=== PATIENT | male | born 1940 | race African-American/Black ===

== ENCOUNTER 2019-11-30 14:56 | Observation (INO) | payer MEDICARE, OTHER ==
--- NOTE | 2019-11-30 14:58 | ER Document Report ---
ED General - General Stated Complaint: POSSIBLE STROKE Time Seen by Provider: 11/30/19 14:58 Mode of Arrival: Medic Information source: Patient, Emergency Med Personnel Cannot obtain history due to: Dementia TRAVEL OUTSIDE OF THE [place] IN LAST 30 DAYS: No - HPI Onset: Other - unknown onset. SNF staff noticed the changes at 2pm but unclear time of onset Onset/Duration: Sudden Quality of pain: No pain Severity: Mild Associated symptoms: Weakness - left sided, Other - left sided facial droop Exacerbated by: Denies Relieved by: Denies Similar symptoms previously: No Recently seen / treated by doctor: Yes - patient was recently admitted at the [facility] for cellulitis Notes: 79 year old male with a history of Dementia, Obesity, DM, HTN and recent admission for cellulitis (patient is currently in a rehab facility) sent to the ER from his rehab facility due to a concern of left side weakness and facial droop. The patient apprently had a signficiant cellulitis requiring admission for IV antibiotic 2 weeks ago and he ended up going to a rehab facility afte rhis admission. The patient has no complaints here in the ER but his and apparently staff at his facility feel like has a left sided facial droop today. The facial droop was noticed around 2pm but no one knows for sure the exact time of onset of the facial droop. The patient was also noted to have some left sided weakness by the long-term staff but the patient denies this time here in the ER. - Related Data Allergies/Adverse Reactions: No Known Allergies Allergy (Verified 11/30/19 18:25) Past Medical History - General Information source: Patient, Emergency Med Personnel Cannot obtain history due to: Dementia - Social History Smoking Status: Former Smoker Frequency of alcohol use: None Drug Abuse: None Lives with: Other - patient is currently in a rehab facility but he usually lives with his Family History: Reviewed & Not Pertinent Patient has suicidal ideation: No Patient has homicidal ideation: No - Past Medical History Cardiac Medical History: Reports: Hx Hypertension Neurological Medical History: Reports: Other - Dementia Endocrine Medical History: Reports: Hx Diabetes Mellitus Type 2 Renal/ Medical History: Reports: Other - Chronic Kidney Disease Skin Medical History: Reports Hx Cellulitis Review of Systems - Review of Systems Constitutional: No symptoms reported EENT: No symptoms reported Cardiovascular: No symptoms reported Respiratory: No symptoms reported Gastrointestinal: No symptoms reported Genitourinary: No symptoms reported Male Genitourinary: No symptoms reported Musculoskeletal: No symptoms reported Skin: No symptoms reported Hematologic/Lymphatic: No symptoms reported Neurological/Psychological: Other - mild left sided facial droop -: Yes All other systems reviewed and negative Physical Exam - Vital signs Vitals: Pulse Resp BP Pulse Ox 80 15 142/58 H 100 11/30/19 14:59 11/30/19 14:59 11/30/19 14:59 11/30/19 14:59 - Notes Notes: GENERAL: Obese, Well-appearing, well-nourished and in no acute distress. HEAD: Atraumatic, normocephalic. EYES: Pupils equal round and reactive to light, extraocular movements intact, sclera anicteric, conjunctiva are normal. ENT: TMs normal, nares patent, oropharynx clear without exudates. Moist mucous membranes. NECK: Normal range of motion, supple without lymphadenopathy or JVD. LUNGS: Breath sounds clear to auscultation bilaterally and equal. No wheezes rales or rhonchi. HEART: Regular rate and rhythm without murmurs, rubs or gallops. ABDOMEN: Soft, nontender, normoactive bowel sounds. No guarding, no rebound. No masses appreciated. EXTREMITIES: Normal range of motion, no pitting or edema. No clubbing or cyanosis. NEUROLOGICAL: Cranial nerves II through XII grossly intact except for very mild left sided facial droop. Normal speech. Equal strength throughout in all joints/extremities but patient is generally weak. NIH stroke scale of 1 for very mild left sided facial droop although patient is able to smile normal on the same side. PSYCH: Normal mood, normal affect. SKIN: Warm, Dry, normal turgor, no rashes or lesions noted. Course - Re-evaluation Re-evalutation: 11/30/19 18:37 The patient was sent to the ER from his rehab facility due to concern of a left sided facial droop and left sided weakness. The time of onset was unknown so the patient is not a TPA candidate. The patient himself thinks nothing is wrong with him but his family thinks he has a mild left sided facial droop. The patient's work up in the including a head CT was unremarkable. Patient admitted for a TIA work up. - Vital Signs Vital signs: Temp Pulse Resp BP Pulse Ox 84 24 H 146/67 H 100 11/30/19 18:00 11/30/19 18:25 11/30/19 18:25 11/30/19 18:25 - Laboratory Result Diagrams: 11/30/19 14:44 11/30/19 14:44 Laboratory results interpreted by me: 11/30/19 11/30/19 11/30/19 14:44 14:44 14:44 Hgb 13.2 L RDW 16.0 H APTT 36.7 H Carbon Dioxide 31 H Creatinine 1.30 H Est GFR (MDRD) Non-Af 53 L Glucose 137 H Discharge - Discharge Clinical Impression: TIA (transient ischemic attack) Condition: Stable Disposition: ADMITTED OBSERVATION Admitting Provider: Joshua (Hospitalist) Unit Admitted: RUPESH
[2019-11-30 15:13] LABS: PARTIAL THROMBOPLASTIN TIME 36.7 SEC (23.5-35.8)
[2019-11-30 15:19] LABS: ABSOLUTE BASOPHILS # (AUTO) 0.1 10^3/uL (0.0-0.2); ABSOLUTE EOSINOPHILS # (AUTO) 0.5 10^3/uL (0.0-0.6); ABSOLUTE LYMPHOCYTES (AUTO) 2.1 10^3/uL (0.5-4.7); ABSOLUTE MONOCYTES (AUTO) 0.9 10^3/uL (0.1-1.4); ABSOLUTE NEUT (AUTO) 6.6 10^3/uL (1.7-8.2); BASOPHILS % (AUTO) 0.5 % (0-2); EOSINOPHILS % (AUTO) 4.6 % (0-6); HEMATOCRIT 39.4 % (37.9-51.0); HEMOGLOBIN 13.2 g/dL (13.5-17.0); INTERNATIONAL RATION (INR) 1.13; LYMPHOCYTES % (AUTO) 21.1 % (13-45); MEAN CORPUSCULAR HEMOGLOBIN 30.3 pg (27.0-33.4); MEAN CORPUSCULAR HGB CONC 33.5 g/dL (32.0-36.0); MEAN CORPUSCULAR VOLUME 90 fl (80-97); PLATELET COUNT 328 10^3/uL (150-450); PROTHROMBIN TIME 14.6 SEC (11.4-15.4); RED BLOOD COUNT 4.36 10^6/uL (4.35-5.55); SEGMENTED NEUTROPHILS % (AUTO) 64.8 % (42-78); TOTAL CELLS COUNTED % (AUTO) 100 %; WHITE BLOOD COUNT 10.2 10^3/uL (4.0-10.5)
--- NOTE | 2019-11-30 15:26 | RADIOLOGY REPORT (SQ) ---
EXAM DESCRIPTION: CHEST SINGLE VIEW COMPLETED DATE/TIME: 11/30/2019 3:11 pm REASON FOR STUDY: eval for left sided weakness COMPARISON: None. EXAM PARAMETERS: NUMBER OF VIEWS: One view. TECHNIQUE: Single frontal radiographic view of the chest acquired. RADIATION DOSE: NA LIMITATIONS: None. FINDINGS: LUNGS AND PLEURA: No opacities, masses or pneumothorax. No pleural effusion. MEDIASTINUM AND HILAR STRUCTURES: No masses. Contour normal. HEART AND VASCULAR STRUCTURES: Heart normal in size. Normal vasculature. BONES: No acute findings. HARDWARE: None in the chest. OTHER: No other significant finding. IMPRESSION: NO ACUTE RADIOGRAPHIC FINDING IN THE CHEST. TECHNICAL DOCUMENTATION: JOB ID: [id number] 2010 [employer]- All Rights Reserved Reading location - IP/workstation name: [email or web address]
--- NOTE | 2019-11-30 15:26 | RADIOLOGY REPORT (SQ) ---
EXAM DESCRIPTION: CT HEAD WITHOUT COMPLETED DATE/TIME: 11/30/2019 3:06 pm REASON FOR STUDY: eval for left sided weakness COMPARISON: None. TECHNIQUE: Axial images acquired through the brain without intravenous contrast. Images reviewed wi th bone, brain and subdural windows. Additional sagittal and coronal reconstructions were generated. Images stored on PACS. All CT scanners at this facility use dose modulation, iterative reconstruction, and/or weight based d osing when appropriate to reduce radiation dose to as low as reasonably achievable (ALARA). [facility]: Dose Right [facility]: CareDose [facility]: Dose Right [facility]: Teradose 4D [facility]: [employer] RADIATION DOSE: 53.2 mGy. LIMITATIONS: MILD MOTION ARTIFACT FINDINGS: VENTRICLES: Normal size and contour. CEREBRUM: No masses. No hemorrhage. No midline shift. No evidence for acute infarction. Diffuse lo w attenuation in the bifrontal and biparietal white matter from chronic small vessel ischemic change. CEREBELLUM: No masses. No hemorrhage. No alteration of density. No evidence for acute infarction. EXTRAAXIAL SPACES: No fluid collections. No masses. ORBITS AND GLOBE: No intra- or extraconal masses. Normal contour of globe without masses. CALVARIUM: No fracture. PARANASAL SINUSES: No fluid or mucosal thickening. SOFT TISSUES: No mass or hematoma. OTHER: No other significant finding. IMPRESSION: Chronic white matter disease. No acute findings EVIDENCE OF ACUTE STROKE: NO. COMMENT: Pertinent findings on the imaging study reported as a CRITICAL RESULT to DHAVAL Sylvester at 15:19 on 11/30/2019. Category of Critical Result: CT stroke alert Quality ID # [id number]: Final reports with documentation of one or more dose reduction techniques (e.g., Au tomated exposure control, adjustment of the mA and/or kV according to patient size, use of iterative reconstruction technique) TECHNICAL DOCUMENTATION: JOB ID: [id number] 2010 [employer]- All Rights Reserved Reading location - IP/workstation name: [email or web address]
[2019-11-30 15:39] LABS: ALBUMIN 3.7 g/dL (3.5-5.0); ALKALINE PHOSPHATASE 69 U/L (38-126); ANION GAP 10 (5-19); ASPARTATE AMINO TRANSFERASE 21 U/L (17-59); BILIRUBIN,DIRECT 0.2 mg/dL (0.0-0.4); BILIRUBIN,TOTAL 0.6 mg/dL (0.2-1.3); BLOOD UREA NITROGEN 10 mg/dL (7-20); CARBON DIOXIDE 31 mmol/L (22-30); CHLORIDE 100 mmol/L (98-107); CREATINE KINASE 87 U/L (55-170); GLUCOSE 137 mg/dL (75-110); POTASSIUM 4.1 mmol/L (3.6-5.0); TOTAL PROTEIN 7.8 g/dL (6.3-8.2)
[2019-11-30 15:48] LABS: CREATINE KINASE MB 1.18 ng/mL (<4.55)
[2019-11-30 15:49] LABS: TROPONIN I < 0.012 ng/mL
[2019-11-30] MEDS ORDERED: ACETAMINOPHEN 325 MG TABLET PO PRN (17:50)
[2019-11-30] MEDS ORDERED: MAG HYDROX/AL HYDROX/SIMETH SUSP 30 ML UDCUP PO PRN (17:50)
[2019-11-30] MEDS ORDERED: ONDANSETRON HCL INJ/PF 4 MG/2 ML SDV IV PRN (17:50)
[2019-11-30] MEDS ORDERED: ONDANSETRON 4 MG TAB.RAPDIS PO PRN (17:50)
[2019-11-30] MEDS ORDERED: HYDRALAZINE HCL INJ/PF 20 MG/1 ML SDV IV PRN (17:59)
[2019-11-30] MEDS ORDERED: DEXTROSE 40% GEL 15 GM TUBE PO PRN ×2 (18:03)
[2019-11-30] MEDS ORDERED: DEXTROSE 50%-WATER 25 GM/50 ML DISP.SYRIN IV PRN ×2 (18:03)
[2019-11-30] MEDS ORDERED: GLUCAGON,HUMAN RECOMB 1 MG INJ IM PRN (18:03)
--- NOTE | 2019-11-30 18:07 | PDOC H&P ---
History of Present Illness Admission Date/PCP: 11/30/19 17:35 History of Present Illness: JERRICA MOREAU is a 79 year old male sent over from [place] rehab with a possible TIA. According to the ER documentation this afternoon sometime around 1400 hrs. the staff at [facility] noticed that there may have been some left facial weakness. Patient however tells me that someone was listening to his chest and heard something "unusual" and told him that he needed to go to the emergency room. She does have a history of dementia and I am unsure if he is a reliable historian. At any rate now he has no obvious facial weakness or unilateral weakness or localizing weakness now in the ER. CT head scan is negative. Patient does have a slightly elevated blood pressure 184/91. Looks as though his pressures earlier were in the 150s over 90. Medications are not listed in the chart. Will now be admitted in observation status have an MRI and carotid Dopplers tomorrow placed on 81 mg of aspirin and possibly discharge back to [place] tomorrow, if stable. Past Medical History Cardiac Medical History: Reports: Hypertension Neurological Medical History: Reports: Other - Dementia Endocrine Medical History: Reports: Diabetes Mellitus Type 2 Renal/ Medical History: Reports: Other - Chronic Kidney Disease Skin Medical History: Reports: Other - Recently cellulitis 2 weeks ago at the [facility] Social History Lives with: Other - patient is currently in a rehab facility but he usually live s with his Smoking Status: Former Smoker Electronic Cigarette use?: No - Advance Directive Resuscitation Status: Full Code Family History Family History: Reviewed & Not Pertinent Parental Family History Reviewed: No Children Family History Reviewed: No Sibling(s) Family History Reviewed.: No Review of Systems ROS unobtainable: Due to mental status Physical Exam Vital Signs: Temp Pulse Resp BP Pulse Ox 78 16 154/64 H 99 11/30/19 15:00 11/30/19 15:00 11/30/19 15:00 11/30/19 15:00 Intake & Output 11/29/19 11/30/19 12/01/19 06:59 06:59 06:59 Weight 149.776 kg General appearance: PRESENT: no acute distress, other - Talking although poor historian Respiratory exam: PRESENT: clear to auscultation aleks. ABSENT: rales, rhonchi, wheezes Cardiovascular exam: PRESENT: RRR. ABSENT: diastolic murmur, rubs, systolic murmur Neurological exam: PRESENT: alert, awake, oriented to person, oriented to place, oriented to time, oriented to situation, CN II-XII grossly intact, other - No focal deficits brand director strong and equal 5/5 no facial weakness. ABSENT: motor sensory deficit Psychiatric exam: PRESENT: appropriate affect, normal mood. ABSENT: homicidal ideation, suicidal ideation Results Laboratory Results: 11/30/19 14:44 11/30/19 14:44 11/30/19 11/30/19 14:44 14:44 WBC 10.2 RBC 4.36 Hgb 13.2 L Hct 39.4 MCV 90 MCH 30.3 MCHC 33.5 RDW 16.0 H Plt Count 328 Seg Neutrophils % 64.8 Sodium 140.8 Potassium 4.1 Chloride 100 Carbon Dioxide 31 H Anion Gap 10 BUN 10 Creatinine 1.30 H Est GFR ( Amer) > 60 Glucose 137 H Calcium 10.0 Total Bilirubin 0.6 AST 21 Alkaline Phosphatase 69 Total Protein 7.8 Albumin 3.7 11/30/19 11/30/19 14:44 14:44 Creatine Kinase 87 CK-MB (CK-2) 1.18 Troponin I < 0.012 Impressions: Chest X-Ray 11/30/19 14:59 IMPRESSION: NO ACUTE RADIOGRAPHIC FINDING IN THE CHEST. Head CT 11/30/19 14:59 IMPRESSION: Chronic white matter disease. No acute findings EVIDENCE OF ACUTE STROKE: NO. Assessment and Plan - Diagnosis (1) Hypertension Is this a current diagnosis for this admission?: Yes (2) Diabetes Is this a current diagnosis for this admission?: Yes (3) Obesity Is this a current diagnosis for this admission?: Yes (4) Dementia Is this a current diagnosis for this admission?: Yes (5) TIA (transient ischemic attack) Is this a current diagnosis for this admission?: Yes - Plan Summary Summary: Will be admitted for observation. I see no reason to do men's or stroke protocol patient is perfectly normal neurologically except for chronic dementia. Check fingerstick blood sugars, will regulate high blood pressure, start on 81 mg aspirin. We will pursue MRI of the head and carotid Dopplers tomorrow. Possibly to be discharged back to [facility] tomorrow if stable - Time Time Spent with patient: 35 or more minutes
--- NOTE | 2019-11-30 18:48 | EKG REPORT ---
SEVERITY:- ABNORMAL ECG - SINUS RHYTHM BORDERLINE LEFT AXIS DEVIATION NONSPECIFIC T ABNORMALITIES, LATERAL LEADS BORDERLINE PROLONGED QT INTERVAL : Confirmed by: Yue Myers 30-Nov-2019 18:48:03
[2019-11-30] MEDS: NORMAL SALINE 1000 ML 1,000 ML IV PRN (20:04)
[2019-11-30] MEDS: ASPIRIN 81 MG TABLET, ENT COATED PO SCH (20:04)
[2019-11-30] MEDS: INSULIN LISPRO 100 UNIT/ML 3 ML VIAL SUBCUT SCH (21:45)
[2019-11-30] MEDS: FAMOTIDINE 20 MG TABLET PO SCH (21:48)
--- NOTE | 2019-12-01 01:03 | RADIOLOGY REPORT (SQ) ---
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 COMPARISON: None available CLINICAL HISTORY: A 79-year old patient with TIA. TECHNIQUE: Thurman-scale, duplex and color Doppler images of the carotid systems are obtained bilaterally. (Validated velocity measurements with angiographic measurements - Velocity criteria are extrapolated from diameter data as defined by the Society of Radiologists in Ultrasound Consensus Conference, Radiology 2003; 229; 340 - 346.) FINDINGS: Mild to moderate atherosclerotic plaque and intimal thickening is seen within both carotid bulbs as well as the proximal internal and external carotid arteries. Spectral analysis demonstrates peak systolic and end-diastolic velocities as follows: RIGHT: CCA: 104 cm/s, eight cm/s The right internal carotid artery was not visualized. LEFT: CCA: 83.5 cm/s, 9.3 cm/s Proximal ICA: 53.7 cm/s, 8.2 cm/s Distal ICA: 56.3 cm/s, 8.8 cm/s The ICA:CCA ratio on the left is 0.9. There is antegrade flow in both vertebral arteries. IMPRESSION: No evidence of a hemodynamically significant abnormality within the left internal carotid artery.. The right internal carotid artery was not well visualized. Peak systolic and end-diastolic velocities are all consistent with luminal narrowing of less than 50%.
[2019-12-01 05:33] LABS: APPEARANCE,URINE CLEAR; BILIRUBIN,URINE NEGATIVE (NEGATIVE); COLOR,URINE YELLOW; GLUCOSE, URINE NEGATIVE (NEGATIVE); KETONES,URINE NEGATIVE (NEGATIVE); LEUKOCYTE ESTERASE,URINE NEGATIVE (NEGATIVE); NITRITE,URINE NEGATIVE (NEGATIVE); PROTEIN,URINE 30 mg/dL (NEGATIVE); URINE SPECIFIC GRAVITY 1.013; UROBILINOGEN,URINE NEGATIVE mg/dL (<2.0)
[2019-12-01 06:09] LABS: ABSOLUTE BASOPHILS # (AUTO) 0.1 10^3/uL (0.0-0.2); ABSOLUTE EOSINOPHILS # (AUTO) 0.5 10^3/uL (0.0-0.6); ABSOLUTE MONOCYTES (AUTO) 0.7 10^3/uL (0.1-1.4); ABSOLUTE NEUT (AUTO) 4.2 10^3/uL (1.7-8.2); EOSINOPHILS % (AUTO) 6.6 % (0-6); HEMOGLOBIN 12.2 g/dL (13.5-17.0); LYMPHOCYTES % (AUTO) 26.7 % (13-45); MEAN CORPUSCULAR HEMOGLOBIN 30.4 pg (27.0-33.4); MEAN CORPUSCULAR VOLUME 90 fl (80-97); MONOCYTES % (AUTO) 9.9 % (3-13); PLATELET COUNT 262 10^3/uL (150-450); RED BLOOD COUNT 4.02 10^6/uL (4.35-5.55); RED CELL DISTRIBUTION WIDTH 15.9 % (11.5-14.0); SEGMENTED NEUTROPHILS % (AUTO) 55.8 % (42-78); TOTAL CELLS COUNTED % (AUTO) 100 %; WHITE BLOOD COUNT 7.5 10^3/uL (4.0-10.5)
[2019-12-01 06:26] LABS: ANION GAP 8 (5-19); BLOOD UREA NITROGEN 8 mg/dL (7-20); CALCIUM 9.2 mg/dL (8.4-10.2); CARBON DIOXIDE 26 mmol/L (22-30); CHLORIDE 106 mmol/L (98-107); GLUCOSE 88 mg/dL (75-110); POTASSIUM 3.7 mmol/L (3.6-5.0)
[2019-12-01] MEDS: NORMAL SALINE 1000 ML 1,000 ML IV PRN (07:12)
--- NOTE | 2019-12-01 09:12 | PDOC TRANSFER SUMMARY ---
Impression - Admit/DC Date/PCP Admission Date/Primary Care Provider: 11/30/19 17:35 Discharge Date: 12/01/19 - Discharge Diagnosis (1) Hypertension Is this a current diagnosis for this admission?: Yes (2) Diabetes Is this a current diagnosis for this admission?: Yes (3) Obesity Is this a current diagnosis for this admission?: Yes (4) Dementia Is this a current diagnosis for this admission?: Yes (5) TIA (transient ischemic attack) Is this a current diagnosis for this admission?: Yes - Assessment Summary: Will be admitted for observation. I see no reason to do men's or stroke protocol patient is perfectly normal neurologically except for chronic dementia. Check fingerstick blood sugars, will regulate high blood pressure, start on 81 mg aspirin. We will pursue MRI of the head and carotid Dopplers tomorrow. [facility] 12/01/2019 Patient had carotid Dopplers that showed no significant stenosis Patient refused MRI of the head. Patient's vital signs last night his blood pressure to be stable at 130/60 CBC is normal chemistry panel is normal glucose levels are running around anywhere from 88-137 Patient is medically stable to transfer back to [place] on 81 mg of aspirin daily plus Lipitor 20 mg daily - Additional Information Resuscitation Status: Full Code Discharge Diet: Diabetic Discharge Activity: Activity As Tolerated Referrals: AGATHA MASSEY MD [NO LOCAL MD] - Follow up as needed Home Medications: Exenatide Microspheres [Bydureon Pen] 2 mg SQ SIMPSON@1000 11/30/19 Insulin Glargine,Hum.rec.anlog [Lantus Insulin 100 Unit/1 ml 10 ml] 40 unit SUBCUT QHS 11/30/19 Insulin Lispro [Humalog Insulin (Lispro) 100 unit/mL] 0 unit SUBCUT .SLD SCALE 11/30/19 Lisinopril [Prinivil] 20 mg PO DAILY 11/30/19 Multivitamin with Minerals [One Daily Plus Minerals] 1 each PO DAILY 11/30/19 Nystatin [Mycostatin Topical Powder 15 gm] 1 applic TP BID 11/30/19 Zinc Sulfate [Zinc-220] 220 mg PO DAILY 11/30/19 Acetaminophen [Tylenol 325 mg Tablet] 650 mg PO Q4HP PRN tablet 12/01/19 Aspirin [Ecotrin 81 mg EC Tablet] 81 mg PO DAILY tabec 12/01/19 History of Present Illiness History of Present Illness: JERRICA MOREAU is a 79 year old male sent over from [place] rehab with a possible TIA. According to the ER documentation this afternoon sometime around 1400 hrs. the staff at [facility] noticed that there may have been some left facial weakness. Patient however tells me that someone was listening to his chest and heard something "unusual" and told him that he needed to go to the emergency room. She does have a history of dementia and I am unsure if he is a reliable historian. At any rate now he has no obvious facial weakness or unilateral weakness or localizing weakness now in the ER. CT head scan is negative. Patient does have a slightly elevated blood pressure 184/91. Looks as though his pressures earlier were in the 150s over 90. Medications are not listed in the chart. Will now be admitted in observation status have an MRI and carotid Dopplers tomorrow placed on 81 mg of aspirin and possibly discharge back to [place] tomorrow, if stable. Physical Exam Vital Signs: Temp Pulse Resp BP Pulse Ox 97.8 F 81 18 130/64 H 99 11/30/19 23:58 12/01/19 07:00 12/01/19 04:30 12/01/19 04:30 12/01/19 04:30 Intake & Output 11/30/19 12/01/19 12/02/19 06:59 06:59 06:59 Intake Total 2 998 Output Total 200 Balance -198 998 Weight 133.6 kg Results Laboratory Results: WBC 7.5 10^3/uL (4.0-10.5) 12/01/19 05:21 RBC 4.02 10^6/uL (4.35-5.55) L 12/01/19 05:21 Hgb 12.2 g/dL (13.5-17.0) L 12/01/19 05:21 Hct 36.0 % (37.9-51.0) L 12/01/19 05:21 MCV 90 fl (80-97) 12/01/19 05:21 MCH 30.4 pg (27.0-33.4) 12/01/19 05:21 MCHC 34.0 g/dL (32.0-36.0) 12/01/19 05:21 RDW 15.9 % (11.5-14.0) H 12/01/19 05:21 Plt Count 262 10^3/uL (150-450) 12/01/19 05:21 Lymph % (Auto) 26.7 % (13-45) 12/01/19 05:21 [place] % (Auto) 9.9 % (3-13) 12/01/19 05:21 Eos % (Auto) 6.6 % (0-6) H 12/01/19 05:21 Baso % (Auto) 1.0 % (0-2) 12/01/19 05:21 Absolute Neuts (auto) 4.2 10^3/uL (1.7-8.2) 12/01/19 05:21 Absolute Lymphs (auto) 2.0 10^3/uL (0.5-4.7) 12/01/19 05:21 Absolute Monos (auto) 0.7 10^3/uL (0.1-1.4) 12/01/19 05:21 Absolute Eos (auto) 0.5 10^3/uL (0.0-0.6) 12/01/19 05:21 Absolute Basos (auto) 0.1 10^3/uL (0.0-0.2) 12/01/19 05:21 Seg Neutrophils % 55.8 % (42-78) 12/01/19 05:21 PT 14.6 SEC (11.4-15.4) 11/30/19 14:44 INR 1.13 11/30/19 14:44 APTT 36.7 SEC (23.5-35.8) H 11/30/19 14:44 Sodium 140.4 mmol/L (137-145) 12/01/19 05:21 Potassium 3.7 mmol/L (3.6-5.0) 12/01/19 05:21 Chloride 106 mmol/L (98-107) 12/01/19 05:21 Carbon Dioxide 26 mmol/L (22-30) 12/01/19 05:21 Anion Gap 8 (5-19) 12/01/19 05:21 BUN 8 mg/dL (7-20) 12/01/19 05:21 Creatinine 1.14 mg/dL (0.52-1.25) 12/01/19 05:21 Est GFR ( Amer) > 60 (>60) 12/01/19 05:21 Est GFR (MDRD) Non-Af > 60 (>60) 12/01/19 05:21 Glucose 88 mg/dL (75-110) 12/01/19 05:21 POC Glucose 88 mg/dL (70-110) 12/01/19 07:48 Calcium 9.2 mg/dL (8.4-10.2) 12/01/19 05:21 Total Bilirubin 0.6 mg/dL (0.2-1.3) 11/30/19 14:44 Direct Bilirubin 0.2 mg/dL (0.0-0.4) 11/30/19 14:44 Neonat Total Bilirubin Not Reportable 11/30/19 14:44 Neonat Direct Bilirubin Not Reportable 11/30/19 14:44 Neonat Indirect Bili Not Reportable 11/30/19 14:44 AST 21 U/L (17-59) 11/30/19 14:44 ALT 10 U/L (<50) 11/30/19 14:44 Alkaline Phosphatase 69 U/L (38-126) 11/30/19 14:44 Creatine Kinase 87 U/L (55-170) 11/30/19 14:44 CK-MB (CK-2) 1.18 ng/mL (<4.55) 11/30/19 14:44 Troponin I < 0.012 ng/mL 11/30/19 14:44 Total Protein 7.8 g/dL (6.3-8.2) 11/30/19 14:44 Albumin 3.7 g/dL (3.5-5.0) 11/30/19 14:44 Urine Color YELLOW 12/01/19 03:55 Urine Appearance CLEAR 12/01/19 03:55 Urine pH 5.0 (5.0-9.0) 12/01/19 03:55 Ur Specific [place] 1.013 12/01/19 03:55 Urine Protein 30 mg/dL (NEGATIVE) H 12/01/19 03:55 Urine Glucose (UA) NEGATIVE mg/dL (NEGATIVE) 12/01/19 03:55 Urine Ketones NEGATIVE mg/dL (NEGATIVE) 12/01/19 03:55 Urine Blood NEGATIVE (NEGATIVE) 12/01/19 03:55 Urine Nitrite NEGATIVE (NEGATIVE) 12/01/19 03:55 Urine Bilirubin NEGATIVE (NEGATIVE) 12/01/19 03:55 Urine Urobilinogen NEGATIVE mg/dL (<2.0) 12/01/19 03:55 Ur Leukocyte Esterase NEGATIVE (NEGATIVE) 12/01/19 03:55 Urine WBC (Auto) 1 /HPF 12/01/19 03:55 Urine RBC (Auto) 0 /HPF 12/01/19 03:55 U Hyaline Cast (Auto) 1 /LPF 12/01/19 03:55 Urine Mucus (Auto) RARE /LPF 12/01/19 03:55 Urine Ascorbic Acid NEGATIVE (NEGATIVE) 12/01/19 03:55 11/30/19 14:44 CK-MB (CK-2) 1.18 Troponin I < 0.012 Impressions: Carotid Doppler Study 11/30/19 00:00 IMPRESSION: No evidence of a hemodynamically significant abnormality within the left internal carotid artery.. The right internal carotid artery was not well visualized. Peak systolic and end-diastolic velocities are all consistent with luminal narrowing of less than 50%. Chest X-Ray 11/30/19 14:59 IMPRESSION: NO ACUTE RADIOGRAPHIC FINDING IN THE CHEST. Head CT 11/30/19 14:59 IMPRESSION: Chronic white matter disease. No acute findings EVIDENCE OF ACUTE STROKE: NO. Stroke Is this a Stroke Patient?: No Acute Heart Failure - Is this a Heart Failure Patient?: No
[2019-12-01] MEDS ORDERED: DOCUSATE SODIUM 100 MG CAPSULE PO SCH (10:00)
[2019-12-01] MEDS ORDERED: ENOXAPARIN SODIUM INJ 40 MG/0.4 ML DISP.SYRIN SUBCUT SCH (10:00)
[2019-12-01] MEDS: INSULIN LISPRO 100 UNIT/ML 3 ML VIAL SUBCUT SCH (10:06)
[2019-12-01] MEDS: FAMOTIDINE 20 MG TABLET PO SCH (10:08)
[2019-12-01] MEDS: ASPIRIN 81 MG TABLET, ENT COATED PO SCH (10:08)
[2019-12-01 12:21] VITALS: BP 149/63
== END 2019-12-01 15:25 ==
LOC: ER 14:56 → EH 17:35 → INTOOBSV 17:35 → 3S 19:00
PROVIDERS: ADMIT Hospitalist; ATTEND Hospitalist
DX: G45.9 Transient cerebral ischemic attack, unspecified (principal); F03.90 Unspecified dementia, unspecified severity, without behavioral disturbance, psychotic disturbance, mood disturbance, and anxiety; I12.9 Hypertensive chronic kidney disease with stage 1 through stage 4 chronic kidney disease, or unspecified chronic kidney disease; E11.22 Type 2 diabetes mellitus with diabetic chronic kidney disease; N18.9 Chronic kidney disease, unspecified; E66.9 Obesity, unspecified; Z87.891 Personal history of nicotine dependence; R29.701 NIHSS score 1
CPT/HCPCS: 93005; 99285; 36415 ×2; 82553; 82962 ×2; 82550; 85025 ×2; 85610; 85730; 80048; 80053; 81001; 84484; 93880; 71045; 70450; 93010; A9270 ×5; J1650; J7030 ×2; G0378

== ENCOUNTER → 2020-06-23 | Outpatient (CLI) | payer MEDICARE, OTHER ==
--- NOTE | 2020-06-23 09:10 | ST Inp Modified Barium Swallow ---
Medical Diagnosis - Medical Diagnoses Medical Diagnosis Description & ICD-10 Code(s): dysphagia R13.10 ST Inpatient MBS - General Date: 06/23/20 - History -: Medical - per records sent with patient fron [facility]: patient with history of diabetes, HTN, dementia, and obesity presented to ED with confusion and agitation, as well as new left sided arm weakness after a fall out of his chair on 06/08. Pateint was admitted to the ICU at [facility]. He required intubation after new onset seizures and concern for airway protection. An NG tube was placed during intubation, however, patient removed the NG tube. After extubation, patient demonstrated signs of aspiration at bedside swallow evaluation, MBSS was unable to be completed at [facility] due to equiptment limitations, MBSS was arranged at [facility]. Medications: Medications Reviewed Allergies: Refer to medical record - tetracycline - Subjective Current PO Diet: Pureed Current Symptoms: other - signs of aspiration following extubation Pain: Patient reports, 0/5 - Objective Assessment: Upright, Left Lateral - patient tended to lean forward during assessment, therapist cued patient for upright posture throughout - Food Trials Food Trials Used: Thin liquids, [place] thick liquids, Pureed, Regular The Patient: Required Assist - Assessment Labial Function: Within Normal Limits Lingual Function: Within Normal Limits Mandibular Function: Within Normal Limits Velo-Pharyngeal Function: Unremarkable Laryngeal Function: clear voicing - Pharyngeal Stage Initiation of Pharyngeal Stage: Delayed - mild, pooling of liquids in valleculae prior to swallow Decreased Laryngeal Elevation: Yes - mild Reduced Velo-Pharyngeal Closure: no Reduced Pressure Generation: Yes Pre-Swallowing Pooling in Valleculae: Moderate Pre-Swallowing Pooling in Pyriforms: Mild Reduced Epiglottic Excursion: Yes - moderate Multiple Swallows With: Cleared w/ Liquid Assist Post Swallow Residuals in Valleculae: Significant Post Swallow Residuals in Pyriforms: Mild - Esophageal Stage Cervical Osteophytes Noted: Yes - did not affect swallow - Impression/Summary Laryngeal Penetration: No Tracheal Aspiration: no Effective Compensatory Strategies: hard swallow Patient Presents With: Pharyngeal stage dysph. - moderate Risk of Aspiration: Moderate Risk Due To: Patient demonstrates moderate pharyngeal phase dysphagia, characterized by mild to moderately reduced laryngeal elevation and epiglottic inversion during the swallow. This resulted in residue in valleculae with all textures, residue increased as texture increased. Liquid residue cleared with second hard swallow, and solid residue cleared with liquid wash. Patient is at risk of aspiration after the swallow due to this residue. - Recommendations Solid Diet Recommendations: Mechanical Soft, Chopped Meat Liquid Diet Recommendations: Thin Strict Aspitarion Precautions: Yes Dysphagia Therapy with CLINICAL PRODUCT MANAGER: Follow Up PRN - spoke with [facility] speech pathologist regarding recommendations Recommended Techniques: Fully Upright During Meal, Dry Swallow After Bite, Small Bites and Sips, Alternate Bites/Sips Supervision: requires assistance - Time Total Time: 30 Total Timed Minutes: 30
--- NOTE | 2020-06-23 11:02 | RADIOLOGY REPORT (SQ) ---
EXAM DESCRIPTION: COOKIE SWALLOW IMAGES COMPLETED DATE/TIME: 06/23/2020 8:42 am REASON FOR STUDY: ASPIRATION/DYSPHAGIA COMPARISON: None. TECHNIQUE: Videofluoroscopic swallowing examination was performed in conjunction with speech patholo gy. Videofluoroscopic imaging was obtained and reviewed and these are the findings: RADIATION DOSE: Fluoro time 4.2 minutes 1 images saved to PACS. LIMITATIONS: None FINDINGS: The patient was brought into the fluoro room and placed upright on a modified barium swall ow chair. The patient was then given multiple consistencies mixed with barium to swallow under live fluoroscopic video guidance. According to the Speech Pathologist there was no penetration or aspirat ion. Please refer to the speech pathology report for further details. IMPRESSION: NO EVIDENCE OF PENETRATION OR ASPIRATION. PLEASE SEE SPEECH PATHOLOGIST REPORT FOR OTHER FINDINGS AND RECOMMENDATIONS. COMMENT: None Quality ID [id number]: Final reports for procedures using fluoroscopy that document radiation exposure jake svetlana, or exposure time and number of fluorographic images (if radiation exposure indices are not avail able) TECHNICAL DOCUMENTATION: JOB ID: [id number] 2010 [employer]- All Rights Reserved Reading location - IP/workstation name: [email or web address] [id number]
== END ==
LOC: RAD 08:02
PROVIDERS: ATTEND Family Medicine
DX: R13.13 Dysphagia, pharyngeal phase (principal)
CPT/HCPCS: 74230

== ENCOUNTER 2020-10-26 10:15 | Day surgery (SDC) | payer MEDICARE, OTHER ==
[~2020-10-26 10:15] MED LIST: BUPIVACAINE HCL 0.75% INJ/PF (7.5 MG/1 ML) 10 ML SDV OS PRN; KETOROLAC TROMETHAMINE 0.45% 4 DROP/0.4 ML DROPERETTE OS PRN; LIDOCAINE 4% INJ/PF (40 MG/ML) 5 ML AMPUL OS PRN
[2020-10-26] MEDS ORDERED: EPINEPHRINE INJ/PF 1 MG/1 ML AMPULE ONE (12:33)
[2020-10-26] MEDS ORDERED: CHONDR SU A NA/HYALUR INTRAOC KIT (SURGICARE) ONE (12:33)
[2020-10-26] MEDS ORDERED: LIDOCAINE 1%/PHENYLEPHRINE 1.5% 1 ML VIAL ONE (12:33)
[2020-10-26] MEDS: TROPICAMIDE 1% OPH SOLN 15 ML OS PRN ×3 (12:35→13:04)
[2020-10-26] MEDS: BESIFLOXACIN HCL 0.6% OPH SUSP 5 ML BOTTLE OS PRN ×4 (12:35→13:46)
[2020-10-26] MEDS: TETRACAINE HCL 0.5% OPH SOLN 4 ML OS PRN ×3 (12:35→13:21)
[2020-10-26] MEDS: CYCLOPENTOLATE 0.2%/PHENYLEPHRINE 1% OPH SOLN 2 ML OS PRN ×3 (12:35→13:05)
[2020-10-26] MEDS ORDERED: MIDAZOLAM 2 MG/2 ML INJ ONE (13:00)
[2020-10-26] MEDS ORDERED: ONDANSETRON HCL INJ/PF 4 MG/2 ML SDV ONE (13:00)
[2020-10-26] MEDS ORDERED: FENTANYL CITRATE INJ/PF 100 MCG/2 ML AMPUL ONE (13:00)
[2020-10-26] MEDS: DORZOLAMIDE HCL 2%/TIMOLOL MALEAT 0.5% OPH SOLN 10 ML OS PRN ×2 (13:46)
--- NOTE | 2020-10-26 20:27 | Operative Report ---
Operative Report-[facility] Operative Report: DATE OF SURGERY: [October 26, 2020] PREOPERATIVE DIAGNOSIS: NUCLEAR, CORTICAL, AND POSTERIOR SUBCAPSULAR CATARACTS IN THE LEFT EYE POSTOPERATIVE DIAGNOSIS: NUCLEAR, CORTICAL, AND POSTERIOR SUBCAPSULAR CATARACTS IN THE LEFT EYE, WITH SMALL PUPIL OPERATION: PHACOEMULSIFICATION AND POSTERIOR CHAMBER INTRAOCULAR LENS IMPLANT WITH A MALYUGIN RING TO EXPAND THE PUPIL IN THE LEFTEYE SURGEON: Peter Alarcon MD DUCO POLISHER: Teto] ANESTHESIA: Topical with IV sedation ESTIMATED BLOOD LOSS: None TISSUE REMOVED OR ALTERED: None COMPLICATIONS: None INDICATIONS FOR SURGERY: [Mr. Dumont is a 80 year old male] who presented to our clinic complaining of difficulty seeing to read, to drive and to play golf. On examination he was found to have a best corrected visual acuity of 20/50. He was also found to have a 1+ nuclear, 3+ cortical, trace posterior subcapsular cataract In the left eye. We discussed the risks, benefits and alternatives of cataract extraction and intraocular lens implant as a means of improving his vision. Risks that were presented to the patient included infection, bleeding, retinal detachment, persistent corneal swelling and possible need for additional surgery. And I also explain to the patient may need to wear glasses after surgery. After our discussion he indicated his interest in having this procedure performed by signing and informed, witnessed consent form.] PROCEDURE: On the day of surgery, the patient was given a topical application to the left eye while in the preop holding area that consist of lidocaine jelly, cyclopentolate, Mydriacyl, phenylephrine and Tetracaine. The patient was taken to the operating room in the supine position in a standard eye bed. Intravenous sedation was administered and the patient was prepped and draped in the standard ophthalmic fashion in the operating room. Timeout was performed. Attention was directed to the right eye, where paracentesis was created at the 5:30 position at the limbus with a 15 degree blade. The anterior chamber was filled with 0.3 mL's of 1% methylparaben free lidocaine, and after 30 seconds, the anterior chamber was filled with viscoelastic material. A 3-plane corneal incision was then made with a hawa keratome at 3 o'clock position at the limbus. Despite use of the dilating drops, the inner chamber lidocaine, and viscoelastic material, the pupil remained dilated only to about [4] mm in diameter. I chose to use a Malyugin ring to expand the pupil for better visualization of the lens during the remainder of the surgery. The [6.25] mm Malyugin was removed from package inspected and found to be free of defects. It was loaded into its global compensation director. The tip of the global compensation director was passed through that temporal limbal wound and through this the site the ring was advanced into the anterior chamber, where it grasped the iris at the pupil margin at the 3 o'clock, 6 o'clock, 9 oclock and 12 o'clock positions, and this extended the pupil to a [] mm diameter. A continuous curvilinear capsulorrhexis was then made in the anterior capsule of the lens with a set of cystotome. The lens was hydrodissected using balanced saline solution and the lens nucleus was removed by phacoemulsification using the divide and conquer technique. The CDE was [10.10]. The cortical material was removed from the posterior capsular bag with irrigation and aspiration. The posterior capsular bag was then filled with viscoelastic material, and a lens implant was inserted into the posterior capsular bag. The lens chosen for this case is a one-piece acrylic lens from [[employer] model SN60WF, serial number [id number], lens power 20.5]. The lens was removed and inspected, and found to be without defects. It was loaded into an [Carlos Lynbrook D] global compensation director. The global compensation director was passed through temporal limb of the wound into the posterior capsular bag. It was positioned in the posterior capsular bag the Lucinda spatula. There viscoelastic material was then removed from the anterior chamber and the posterior capsule bag by irrigation and aspiration. The Malyugin ring was disengaged from the iris with Sinskey hook, and it was removed from the temporal lobe of the wound with the Sinskey hook. The viscoelastic material was then removed by irrigation and aspiration. The wounds were closed by stromal hydration. They were tested with Weck-Carleen sponges and found to have no leaks. The intraocular pressure was assessed by manual palpation and found to be with in the physiologic range. The drapes and speculum were removed. Periocular skin was washed with a wet followed by a dry 4 x 4 gauze and drops of Besivance, Durezol, and Combigan were installed in the inferior cul-de-sac of the right eye. The eye was covered with a Portillo shield. The patient was taken to the recovery room in good condition. The patient tolerated the procedure well. The patient was given a prescription for Zymaxid to use every 2 hours while awake in the right eye, and he will return to my clinic for follow-up evaluation with me the day after surgery.
== END 2020-10-26 14:30 | disposition home or self-care (01) ==
LOC: SC 10:15
PROVIDERS: ATTEND Ophthalmology
DX: H25.812 Combined forms of age-related cataract, left eye (principal); E11.36 Type 2 diabetes mellitus with diabetic cataract; Z79.4 Long term (current) use of insulin; Z87.891 Personal history of nicotine dependence; I10 Essential (primary) hypertension
CPT/HCPCS: 66982; 82962; 00142; V2632; J2250; J3490 ×2; A9270; J0171; J2405; 142; J3010